=== PATIENT | female | born 2000 | race American Indian/Alaskan Native ===

== ENCOUNTER 2021-03-14 15:32 | Emergency (ER) | payer MEDICAID ==
[2021-03-14 16:31] VITALS: BP 159/90
[2021-03-14] MEDS ORDERED: dexAMETHasone 20 MG/5 ML VIAL IM ONE (16:38)
[2021-03-14] MEDS ORDERED: IPRATROPIUM 0.02% NEBU 2.5 ML IH ONE ×2 (16:38→16:39)
[2021-03-14] MEDS ORDERED: ALBUTEROL 2.5 MG/3 ML NEBU IH ONE ×2 (16:38→16:39)
--- NOTE | 2021-03-14 16:49 | Emergency Department Report ---
ED Asthma HPI - General Chief Complaint: Adult Asthma Stated Complaint: ASTHMA Time Seen by Provider: 03/14/21 16:34 Source: patient Mode of arrival: Ambulatory Limitations: No Limitations - History of Present Illness Initial Comments: Patient is a 20-year-old female presents emergency room complaints of an asthma exacerbation that began 3 days ago. She has associated wheezing, shortness of breath, chest tightness. She denies any fever, vomiting, diarrhea, leg swelling, hemoptysis, productive cough. No other past medical history except for asthma. She states that she takes albuterol, budesonide, prednisone daily. No allergies to medications. She states that she is a non-smoker. Last menstrual cycle first week of March. - Related Data Previous Rx's Medication Instructions Recorded Last Taken Type Budesonide/Formoterol Fumarate 2 puff IH BID #1 hfa.aer.ad 03/14/21 Unknown Rx [Symbicort 80-4.5 Mcg Inhaler] predniSONE [Deltasone] 40 mg PO QDAY 5 Days #10 tab 03/14/21 Unknown Rx Allergies Allergy/AdvReac Type Severity Reaction Status Date / Time No Known Allergies Allergy Unverified 03/14/21 16:31 ED Review of Systems ROS: Stated complaint: ASTHMA Other details as noted in HPI Comment: All other systems reviewed and negative ED Past Medical Hx - Past Medical History Previous Medical History?: Yes Hx Asthma: Yes - Social History Smoking Status: Never Smoker Substance Use Type: None - Medications Home Medications: Home Medications Medication Instructions Recorded Confirmed Last Taken Type Budesonide/Formoterol Fumarate 2 puff IH BID #1 hfa.aer.ad 03/14/21 Unknown Rx [Symbicort 80-4.5 Mcg Inhaler] predniSONE [Deltasone] 40 mg PO QDAY 5 Days #10 tab 03/14/21 Unknown Rx ED Physical Exam - General Limitations: No Limitations General appearance: alert, in no apparent distress - Head Head exam: Present: atraumatic, normocephalic - Eye Eye exam: Present: normal appearance - ENT ENT exam: Present: mucous membranes moist - Respiratory Respiratory exam: Present: wheezes (inspiratory and expiratory wheezing bilaterally ), accessory muscle use, prolonged expiratory. Absent: respiratory distress, rales, rhonchi, stridor, decreased breath sounds - Cardiovascular Cardiovascular Exam: Present: regular rate, normal rhythm, normal heart sounds. Absent: systolic murmur, diastolic murmur, rubs, gallop - Neurological Exam Neurological exam: Present: alert, oriented X3 - Psychiatric Psychiatric exam: Present: normal affect, normal mood - Skin Skin exam: Present: warm, dry, intact ED Course Vital Signs 03/14/21 03/14/21 03/14/21 16:31 16:33 16:34 Temperature 98.4 F 98.4 F Pulse Rate 74 74 Pulse Rate [ Anterior Bilateral Throughout] Respiratory 20 20 Rate Respiratory Rate [Anterior Bilateral Throughout] Blood Pressure Blood Pressure 159/90 159/90 [Right] O2 Sat by Pulse 97 97 97 Oximetry 03/14/21 03/14/21 03/14/21 16:35 16:44 18:24 Temperature 98.4 F 98.3 F Pulse Rate 74 75 Pulse Rate [ 93 H Anterior Bilateral Throughout] Respiratory 20 14 Rate Respiratory 19 Rate [Anterior Bilateral Throughout] Blood Pressure 159/90 Blood Pressure [Right] O2 Sat by Pulse 97 99 Oximetry ED Medical Decision Making - Medical Decision Making Patient is a 20-year-old female presents emergency room complaints of an asthma exacerbation that began 3 days ago. She has associated wheezing, shortness of breath, chest tightness. She denies any fever, vomiting, diarrhea, leg swelling, hemoptysis, productive cough. No other past medical history except for asthma. She states that she takes albuterol, budesonide, prednisone daily. No allergies to medications. She states that she is a non-smoker. Last menstrual cycle first week of March. Vitals are stable. On exam:inspiratory and expiratory wheezing bilaterally. Patient given continuous neb treatment and IM steroids, on reexamination wheezing has completely resolved and patient is feeling much better and ready to go home. Patient has no clinical signs of bacterial pneumonia or bacterial bronchitis, no fever, no productive cough, no rhonchi/rales on exam. Patient states that she needs a refill of her Symbicort patient given a refill of her medication and placed on 40 mg of prednisone daily for 5 days. Advised patient Please take medication as prescribed. Please take this dose of prednisone for 5 days and then restart your regular prednisone dose after you have finished the 5 days. Please use your nebulizer treatments every 4-6 hours as needed for wheezing or shortness of breath. Follow-up with your primary care doctor. Return to emergency room for any new or worsening symptoms. Critical care attestation.: If time is entered above; I have spent that time in minutes in the direct care of this critically ill patient, excluding procedure time. ED Disposition Clinical Impression: Asthma exacerbation Qualifiers: Asthma severity: unspecified severity Asthma persistence: unspecified Qualified Code(s): J45.901 - Unspecified asthma with (acute) exacerbation Disposition: 01 HOME / SELF CARE / HOMELESS Is pt being admited?: No Does the pt Need Aspirin: No Condition: Stable Instructions: Asthma, Adult Additional Instructions: Please take medication as prescribed. Please take this dose of prednisone for 5 days and then restart your regular prednisone dose after you have finished the 5 days. Please use your nebulizer treatments every 4-6 hours as needed for wheezing or shortness of breath. Follow-up with your primary care doctor. Return to emergency room for any new or worsening symptoms. Prescriptions: predniSONE [Deltasone] 40 mg PO QDAY 5 Days #10 tab Budesonide/Formoterol Fumarate [Symbicort 80-4.5 Mcg Inhaler] 2 puff IH BID #1 hfa.[email or web address] Referrals: your, primary care doctor [Other] - 3-5 Days Time of Disposition: 17:31 Print Language: BELARUSIAN
== END 2021-03-14 18:26 | disposition home or self-care (01) ==
LOC: ED 15:32
DX: J45.901 Unspecified asthma with (acute) exacerbation (principal)
CPT/HCPCS: 94640; 96372; 99282; J1100; 94644